=== PATIENT | female | born 1975 | race Caucasian/White ===

== ENCOUNTER 2018-10-04 07:43 | Emergency (ER) | payer OTHER ==
[~2018-10-04] VITALS: Ht 162.6 cm; Wt 52.2 kg
[2018-10-04 07:51] VITALS: BP 103/72
== END 2018-10-04 09:01 | disposition home or self-care (01) ==
LOC: ER 07:43
DX: S93.691A Other sprain of right foot, initial encounter (principal); W00.0XXA Fall on same level due to ice and snow, initial encounter; Y92.89 Other specified places as the place of occurrence of the external cause; Y93.89 Activity, other specified; Y99.8 Other external cause status